=== PATIENT | male | born 1965 | race Caucasian/White ===

== ENCOUNTER 2016-05-11 14:39 | Emergency (ER) | payer MEDICARE ==
[~2016-05-11] VITALS: Ht 121.9 cm; Wt 63.5 kg
[~2016-05-11 14:39] MED LIST: NORCO 325-7.5 M1 TAB PO; phentermine
[2016-09-08] MEDS ORDERED: VALIUM5 MG PO (23:16)
[2016-09-08] MEDS ORDERED: LIPITOR20 MG PO (23:17)
[2016-09-08] MEDS ORDERED: VICODIN ES 7.51 EACH PO (23:17)
== END 2016-05-11 15:50 | disposition short-term general hospital (02) ==
LOC: ER 14:39
DX: M25.521 Pain in right elbow (principal); Q78.0 Osteogenesis imperfecta; W20.8XXA Other cause of strike by thrown, projected or falling object, initial encounter; Y92.009 Unspecified place in unspecified non-institutional (private) residence as the place of occurrence of the external cause
CPT/HCPCS: J1170

== ENCOUNTER → 2016-08-11 | Outpatient (CLI) | payer MEDICARE, MEDICAID ==
[~2016-08-11] MED LIST changes: +LIPITOR20 MG PO; +VALIUM5 MG PO; +VICODIN ES 7.51 EACH PO
== END | disposition short-term general hospital (02) ==
LOC: CLSURG 08:15
DX: R22.0 Localized swelling, mass and lump, head (principal)